=== PATIENT | male | born 1980 | race Caucasian/White ===

== ENCOUNTER 2017-06-06 09:35 | Outpatient (CLI) | payer OTHER ==
--- NOTE | 2017-06-06 11:45 | XRAY Report ---
COMPLETE CERVICAL SPINE: 06/06/2017 CLINICAL INDICATION: Neck pain. FINDINGS: AP, lateral, oblique, odontoid views of the cervical spine demonstrate normal height and a lignment of the vertebral bodies. The disk spaces are preserved. There is no evidence of fracture o r subluxation. The prevertebral soft tissues are unremarkable. IMPRESSION: NORMAL CERVICAL SPINE. JOB #: [id number] EXT JOB #:[id number]
== END 2017-06-06 09:36 | disposition home or self-care (01) ==
LOC: DI.S 09:35
PROVIDERS: ATTEND Physician Assistant
DX: M54.2 Cervicalgia (principal)
CPT/HCPCS: 72050

== ENCOUNTER 2020-04-21 15:29 | Outpatient (CLI) | payer OTHER | END 2020-04-21 15:30 | disposition home or self-care (01) | LOC: COV 15:29 | PROVIDERS: ATTEND Family Medicine | DX: R05 Cough (principal); R53.83 Other fatigue; J02.9 Acute pharyngitis, unspecified; R09.81 Nasal congestion; Z20.828 Contact with and (suspected) exposure to other viral communicable diseases ==